=== PATIENT | female | born 1940 | race Caucasian/White ===

== ENCOUNTER 2017-09-25 11:00 | Inpatient (IN) | payer OTHER ==
[~2017-09-25] VITALS: Ht 165.1 cm; Wt 65.8 kg
--- NOTE | ~2017-09-25 | EKG ---
[address] [place] [address] ELECTROCARDIOGRAM REPORT Name: JOCE JIM ELSA Room #: 404-P ADM IN M.R.#: [id number] Admission: 09/25/17 Attend Phys: Jamari Nelson Discharge: Date of : 44 Report #: [id number] THIS REPORT FOR: //name// [facility] ED Test Date: 2017-09-25 Test Time: 11:30:22 Pat Name: JOCE JIM Department: Room: Gender: F [employer]: PIERCE : 1940 Requested By: Niki Elizabeth Order Number: [id number] MD: Zac Vallejo Measurements Intervals [place] Rate: 67 P: 60 RI: 195 QRS: 31 QRSD: 104 T: 33 QT: 435 QTc: 460 Interpretive Statements Sinus rhythm Probable left atrial enlargement No previous ECG available for comparison Electronically Signed On 09-26-2017 8:11:43 CDT by Zac Vallejo [email or web address] <ELECTRONICALLY SIGNED> By: Zac Vallejo MD 09/26/17 0811 1130 1130 Zac Vallejo MD /URIEL
[2017-09-25 11:01] VITALS: BP 132/69
[2017-09-25] MEDS ORDERED: ZYPREXA15 MG PO (11:08)
[2017-09-25] MEDS ORDERED: ARICEPT10 M1 PO (11:08)
[2017-09-25] MEDS ORDERED: LAMICTAL100 MG PO (11:08)
[2017-09-25] MEDS ORDERED: CLONAZEPAM 0.50.5 M1 PO (11:09)
[2017-09-25] MEDS ORDERED: LEXAPRO 10 MG T10 M1 PO (11:09)
[2017-09-25] MEDS ORDERED: TRAZODONE HCL50 MG PO (11:09)
[2017-09-25] MEDS ORDERED: LIPITOR10 MG PO (11:09)
[2017-09-25 11:21] LABS: URINE BILIRUBIN NEGATIVE (Negative); URINE BLOOD NEGATIVE (Negative); URINE CLARITY CLEAR; URINE COLOR YELLOW; URINE GLUCOSE-RANDOM* NEGATIVE (Negative); URINE KETONES NEGATIVE (Negative); URINE LEUKOCYTES 2+ (Negative); URINE NITRITE NEGATIVE (Negative); URINE PROTEIN (DIPSTICK) NEGATIVE (Negative); URINE SPECIFIC GRAVITY 1.015 (1.005-1.035); URINE UROBILINOGEN 0.2 E.U./dl (0.2-1.0)
[2017-09-25 11:30] LABS: BACTERIA None Seen /HPF (None Seen); CASTS None Seen /LPF (None Seen); SQUAMOUS 4-10 Moderate /LPF (0-3); URINE RBC 0-2 Rare /HPF (0-2); URINE WBC 6-15 Few /HPF (0-5)
[2017-09-25 11:31] LABS: AMORPHOUS PHOSPHATES Moderate /LPF (None Seen)
[2017-09-25 11:41] LABS: ABSOLUTE NEUTROPHILS 4.3 thou/uL (1.4-8.2); BASOPHILS 0.4 % (0.0-2.0); EOSINOPHILS 0.6 % (0.0-3.0); HEMATOCRIT 42.8 % (37.0-47.0); HEMOGLOBIN 14.2 gm/dL (12.0-15.0); LYMPHOCYTES 16.7 % (24.0-44.0); MCH 32.5 pg (26.0-34.0); MCHC 33.2 g/dL (28.0-37.0); MCV 97.9 fL (80.0-100.0); MONOCYTES 8.9 % (1.0-8.0); PLATELET COUNT 217 thou/uL (150-400); POLYS 73.4 % (36.0-66.0); RBC 4.37 mil/uL (4.20-5.00); RDW 13.2 % (10.5-14.5); WBC 5.8 thou/uL (4.0-11.0)
[2017-09-25 11:46] LABS: ANION GAP 9 mmol/L (7-16); BUN 12 mg/dL (7-18); CALCIUM 9.5 mg/dL (8.5-10.1); CHLORIDE 107 mmol/L (98-107); CO2 23 mmol/L (21-32); CREATININE 0.6 mg/dL (0.6-1.0); GLUCOSE 112 mg/dL (74-106); POTASSIUM 4.3 mmol/L (3.5-5.1); SODIUM 139 mmol/L (136-145)
[2017-09-25 11:54] LABS: ALBUMIN 3.5 g/dL (3.4-5.0); SGOT 32 U/L (15-37); SGPT 25 U/L (30-65); TOTAL BILIRUBIN 0.5 mg/dL (<0.1-1.0); TOTAL PROTEIN 6.8 g/dL (6.4-8.2); TROPONIN-I < 0.04 ng/mL (<0.06)
[2017-09-25 18:06] VITALS: BP 126/66
[2017-09-25 18:47] VITALS: BP 126/66
[2017-09-25 20:00] VITALS: BP 147/70
[2017-09-26] VITALS: BP 138/72
[2017-09-26 04:00] VITALS: BP 127/54
[2017-09-26 07:08] VITALS: BP 125/62
[2017-09-26 09:16] LABS: TSH 2.071 uIU/mL (0.358-3.740)
[2017-09-26 15:50] VITALS: BP 136/84
[2017-09-26 21:00] VITALS: BP 141/78
[2017-09-27 04:00] VITALS: BP 102/62
[2017-09-27 08:58] VITALS: BP 129/72
[2017-09-27] MEDS ORDERED: ZYPREXA 5 MG TAB5 M1 PO (11:22)
[2017-09-27] MEDS ORDERED: LAMICTAL 25 MG25 M1 PO (11:22)
[2017-09-27] MEDS ORDERED: CEFUROXIME250 MG PO (11:22)
[2017-09-27 15:33] VITALS: BP 126/75
[2017-09-27 20:00] VITALS: BP 123/66
[2017-09-28 04:00] VITALS: BP 110/68
[2017-09-28 13:31] VITALS: BP 110/68
[2017-09-29 10:42] VITALS: BP 110/68
== END 2017-09-28 17:21 | disposition home health service (06) | DRG 689 ==
LOC: ER 11:00 → EROBS 17:37 → 4N 17:37 → ENTRNSPT 09-28 16:29 → 4N 09-28 17:21
PROVIDERS: Hospitalist; Physician Assistant
DX: N39.0 Urinary tract infection, site not specified (principal); G93.40 Encephalopathy, unspecified; F23 Brief psychotic disorder; G30.9 Alzheimer's disease, unspecified; F02.80 Dementia in other diseases classified elsewhere, unspecified severity, without behavioral disturbance, psychotic disturbance, mood disturbance, and anxiety; Z96.641 Presence of right artificial hip joint; G47.00 Insomnia, unspecified; R41.0 Disorientation, unspecified; F32.9 Major depressive disorder, single episode, unspecified; Z87.891 Personal history of nicotine dependence; Z79.899 Other long term (current) drug therapy
CPT/HCPCS: 10091